=== PATIENT | female | born 1990 | race Caucasian/White ===

== ENCOUNTER 2018-05-26 11:31 | Inpatient (IN) | payer OTHER ==
[~2018-05-26] VITALS: Ht 152.4 cm; Wt 68.0 kg
[2018-05-26 15:20] LABS: BASOPHIL % 0.8 % (0-2); PLATELET COUNT 338 x10^3mcL (130-400); RED CELL DISTRIBUTION WIDTH 13.4 % (11.5-14.5)
[2018-05-26 15:28] LABS: CARBON DIOXIDE 25.5 mmol/L (21-32); CHLORIDE SERUM 103 mmol/L (98-107); CREATININE SERUM 0.7 mg/dL (0.6-1.0); GFR1 > 60 mL/min; GLUCOSE SERUM 106 mg/dL (74-106); POTASSIUM SERUM 3.8 mmol/L (3.5-5.1); SODIUM SERUM 140 mmol/L (136-145)
[2018-05-26 15:31] LABS: ALBUMIN 4.4 g/dL (3.4-5.0); ALKALINE PHOSPHATASE 100 U/L (46-116); ALT/SGPT 46 U/L (14-59); AST/SGOT 27 U/L (15-37); BILIRUBIN TOTAL 0.67 mg/dL (0.20-1.00)
[2018-05-26 15:32] LABS: TOTAL PROTEIN, SERUM 8.5 g/dL (6.4-8.2)
[2018-05-26] MEDS ORDERED: QVAR (16:21)
[2018-05-26] MEDS ORDERED: ALBUD HHN (16:22)
[2018-05-26] MEDS ORDERED: VENTOLIN H0.09 MG/A1 INH (16:22)
[2018-05-26] MEDS ORDERED: MONTELUKAST SOD10 M1 PO (16:23)
[2018-05-26] MEDS ORDERED: PRE20 PO (16:23)
[2018-05-26] MEDS ORDERED: ALLERGY10 M2 PO (16:24)
[2018-05-26 17:39] VITALS: BP 131/80
[2018-05-26 18:31] VITALS: BP 131/80
[2018-05-26 21:19] VITALS: BP 113/69
[2018-05-27 05:01] VITALS: BP 118/77
[2018-05-27 06:30] LABS: BASOPHIL % 0.2 % (0-2); PLATELET COUNT 310 x10^3mcL (130-400); RED CELL DISTRIBUTION WIDTH 13.2 % (11.5-14.5)
[2018-05-27 06:33] LABS: T3 TOTAL 0.66 ng/mL
[2018-05-27 06:40] LABS: CARBON DIOXIDE 22.6 mmol/L (21-32); CHLORIDE SERUM 103 mmol/L (98-107); CREATININE SERUM 0.7 mg/dL (0.6-1.0); GFR1 > 60 mL/min; GLUCOSE SERUM 141 mg/dL (74-106); MAGNESIUM 1.9 mg/dL (1.8-2.4); SODIUM SERUM 138 mmol/L (136-145)
[2018-05-27 06:42] LABS: FREE T4 1.18 ng/dL (0.76-1.46); FREE THYROXINE INDEX 2.7 ug/dL (1.4-4.5); T4(THYROXINE) 7.2 ug/dL (4.7-13.3)
[2018-05-27 08:59] VITALS: BP 150/83
[2018-05-27 12:50] VITALS: BP 132/92
[2018-05-27 16:05] VITALS: BP 124/75
[2018-05-27 17:29] LABS: UA SPECIFIC GRAVITY 1.025 (1.005-1.035); microscopic required? NO; urine erythrocyte NEGATIVE (NEGATIVE)
[2018-05-27 17:37] LABS: AMPHETAMINE QUAL UR NONE DETECTED (See below)
[2018-05-27 21:18] VITALS: BP 134/87
[2018-05-28 05:36] VITALS: BP 138/93
[2018-05-28 06:36] LABS: PLATELET COUNT 303 x10^3mcL (130-400); RED CELL DISTRIBUTION WIDTH 13.5 % (11.5-14.5)
[2018-05-28 06:53] LABS: CALCIUM 8.9 mg/dL (8.5-10.1); CARBON DIOXIDE 24.1 mmol/L (21-32); CHLORIDE SERUM 104 mmol/L (98-107); CREATININE SERUM 0.7 mg/dL (0.6-1.0); GFR1 > 60 mL/min; GLUCOSE SERUM 133 mg/dL (74-106); MAGNESIUM 1.9 mg/dL (1.8-2.4); PHOSPHOROUS 3.6 mg/dL (2.5-4.9); POTASSIUM SERUM 3.9 mmol/L (3.5-5.1); SODIUM SERUM 139 mmol/L (136-145)
[2018-05-28 07:21] LABS: BASOPHIL % 0 % (0-2)
[2018-05-28 09:22] VITALS: BP 128/77
[2018-05-28 13:38] VITALS: BP 123/83
[2018-05-28 17:00] VITALS: BP 116/85
[2018-05-28 20:48] VITALS: BP 137/85
[2018-05-29 05:43] VITALS: BP 121/80
[2018-05-29 06:14] LABS: PLATELET COUNT 261 x10^3mcL (130-400); RED CELL DISTRIBUTION WIDTH 13.3 % (11.5-14.5)
[2018-05-29 06:36] LABS: BASOPHIL % 0 % (0-2)
[2018-05-29 06:42] LABS: CALCIUM 8.6 mg/dL (8.5-10.1); CARBON DIOXIDE 25.5 mmol/L (21-32); CHLORIDE SERUM 104 mmol/L (98-107); CREATININE SERUM 0.8 mg/dL (0.6-1.0); GFR1 > 60 mL/min; GLUCOSE SERUM 133 mg/dL (74-106); MAGNESIUM 1.9 mg/dL (1.8-2.4); PHOSPHOROUS 3.9 mg/dL (2.5-4.9); POTASSIUM SERUM 4.1 mmol/L (3.5-5.1); SODIUM SERUM 139 mmol/L (136-145)
[2018-05-29 08:34] VITALS: BP 125/82
[2018-05-29 11:01] VITALS: BP 125/82
[2018-05-29 13:27] VITALS: BP 118/87
[2018-05-29 17:54] VITALS: BP 135/86
[2018-05-29 20:30] VITALS: BP 123/87
[2018-05-30 05:08] VITALS: BP 127/82
[2018-05-30 06:58] LABS: BASOPHIL % 0.1 % (0-2); PLATELET COUNT 280 x10^3mcL (130-400); RED CELL DISTRIBUTION WIDTH 13.3 % (11.5-14.5)
[2018-05-30 07:00] LABS: CALCIUM 8.7 mg/dL (8.5-10.1); CARBON DIOXIDE 26.6 mmol/L (21-32); CHLORIDE SERUM 102 mmol/L (98-107); CREATININE SERUM 0.8 mg/dL (0.6-1.0); GFR1 > 60 mL/min; GLUCOSE SERUM 114 mg/dL (74-106); PHOSPHOROUS 4.2 mg/dL (2.5-4.9); POTASSIUM SERUM 3.9 mmol/L (3.5-5.1); SODIUM SERUM 138 mmol/L (136-145)
[2018-05-30 08:51] VITALS: BP 131/79
[2018-05-30 12:26] VITALS: BP 122/76
[2018-05-30 16:52] VITALS: BP 144/89
[2018-05-30 19:57] VITALS: BP 136/90
[2018-05-31 05:04] VITALS: BP 135/86
[2018-05-31 06:41] LABS: BASOPHIL % 0.1 % (0-2); PLATELET COUNT 268 x10^3mcL (130-400); RED CELL DISTRIBUTION WIDTH 13.1 % (11.5-14.5)
[2018-05-31 07:19] LABS: CALCIUM 8.4 mg/dL (8.5-10.1); CHLORIDE SERUM 102 mmol/L (98-107); CREATININE SERUM 0.8 mg/dL (0.6-1.0); GFR1 > 60 mL/min; GLUCOSE SERUM 128 mg/dL (74-106); MAGNESIUM 2.3 mg/dL (1.8-2.4); PHOSPHOROUS 4.3 mg/dL (2.5-4.9); POTASSIUM SERUM 4.4 mmol/L (3.5-5.1); SODIUM SERUM 136 mmol/L (136-145)
[2018-05-31 07:43] VITALS: BP 139/82
[2018-05-31 12:11] VITALS: BP 133/86
[2018-05-31 18:02] VITALS: BP 136/89
[2018-05-31 19:47] VITALS: BP 132/92
[2018-06-01 04:57] VITALS: BP 124/89
[2018-06-01 07:06] VITALS: BP 124/89
[2018-06-01 09:05] VITALS: BP 136/84
[2018-06-01] MEDS ORDERED: PREDNISONE20 MG PO (10:28)
[2018-06-01] MEDS ORDERED: PREDNISONE10 MG PO (10:28)
[2018-06-01] MEDS ORDERED: SINGULAIR10 MG PO (10:28)
[2018-06-01] MEDS ORDERED: XOPENEX1.25 MG/3 (10:29)
[2018-06-01] MEDS ORDERED: ZITHROMAX TRI-500 MG PO (10:29)
[2018-06-01] MEDS ORDERED: SYMBICORT1 AE3 (10:29)
[2018-06-01 10:51] VITALS: BP 136/84
== END 2018-06-01 12:30 | disposition home or self-care (01) | DRG 133 ==
LOC: ED 11:31 → MU 16:19 → DU 16:19 → MU 17:28 → DU 05-28 03:27
PROVIDERS: Emergency Medicine; Internal Medicine; ADMIT Family Medicine
DX: J96.01 Acute respiratory failure with hypoxia (principal); E86.0 Dehydration; J44.9 Chronic obstructive pulmonary disease, unspecified; J45.51 Severe persistent asthma with (acute) exacerbation; D72.829 Elevated white blood cell count, unspecified; Z79.51 Long term (current) use of inhaled steroids; Z79.52 Long term (current) use of systemic steroids
CPT/HCPCS: 36600; 84439; 87804; 94150; J0456; J2920; J2930; J7030; J7613; J7620; J7626; Q0092